=== PATIENT | male | born 1940 | race Caucasian/White ===

== ENCOUNTER → 2017-10-05 | Outpatient (CLI) | payer MEDICARE ==
[~2017-10-05] MED LIST: LISI-363 PO; LISI-515 PO; MELO15TA20 PO; SYMB160A INH; SYMB80AE INH; VENTAER INH
--- NOTE | 2017-10-05 09:05 | RADRPT ---
EXAM DATE/TIME: 10/05/2017 08:53 [facility] COMPARISON: No previous studies available for comparison. INDICATIONS : Pre op- Evaluate for pneumonia, pneumothorax, or communicable diseases. MEDICAL HISTORY : None. SURGICAL HISTORY : None. ENCOUNTER: Initial ACUITY: 1 day PAIN SCORE: 0/10 LOCATION: Bilateral chest FINDINGS: PA and lateral views of the chest demonstrate the lungs to be symmetrically aerated without evidence of mass, infiltrate or effusion. There is mild hyperinflation. The cardiomediastinal contours are u nremarkable. Degenerative changes thoracic spine. CONCLUSION: No acute disease. Dayday Rodriguez MD FACR on October 05, 2017 at 9:04 Board Certified Radiologist. This report was verified electronically.
[2017-10-05 09:20] LABS: AUTOMATED NEUTROPHIL # 4.4 TH/MM3 (1.8-7.7); BASOPHIL % 0.5 % (0.0-2.0); EOSINOPHIL # 0.3 TH/MM3 (0-0.4); EOSINOPHIL % 3.4 % (0.0-4.0); HEMATOCRIT 41.4 % (39.0-51.0); HEMOGLOBIN 13.7 GM/DL (13.0-17.0); LYMPH % 29.7 % (9.0-44.0); LYMPHOCYTE # 2.3 TH/MM3 (1.0-4.8); MEAN CELL VOLUME 86.7 FL (80.0-100.0); MEAN CORPUSCULAR HEMOGLOBIN 28.8 PG (27.0-34.0); MEAN CORPUSCULAR HGB CONC 33.2 % (32.0-36.0); MEAN PLATELET VOLUME 8.1 FL (7.0-11.0); MONO % 9.1 % (0.0-8.0); MONOCYTE # 0.7 TH/MM3 (0-0.9); NEUT % 57.3 % (16.0-70.0); PLATELET COUNT 219 TH/MM3 (150-450); RED BLOOD COUNT 4.78 MIL/MM3 (4.50-5.90); RED CELL DISTRIBUTION WIDTH 15.1 % (11.6-17.2); WHITE BLOOD COUNT 7.7 TH/MM3 (4.0-11.0)
[2017-10-05 09:23] LABS: BILIRUBIN, URINE NEG (NEG); BLOOD, URINE NEG (NEG); GLUCOSE,URINE NEG (NEG); KETONE, URINE NEG (NEG); MUCUS URINE FEW /lpf (OCC); NITRITE,URINE NEG (NEG); PH, URINE 5.5 (5.0-8.5); SQUAMOUS EPITHELIAL CELL URINE <1 /hpf (0-5); URINE COLOR YELLOW (YELLW/STRAW); URINE LEUKOCYTE ESTERASE NEG (NEG)
[2017-10-05 09:44] LABS: ALBUMIN 3.7 GM/DL (3.4-5.0); AST (GOT) 15 U/L (15-37); BICARBONATE 31.7 MEQ/L (21.0-32.0); BLOOD UREA NITROGEN 27 MG/DL (7-18); CALCIUM 9.4 MG/DL (8.5-10.1); CHLORIDE 107 MEQ/L (98-107); CREATININE 1.04 MG/DL (0.60-1.30); GLOMERULAR FILTRATION RATE 69 ML/MIN (>89); GLUCOSE,FASTING 101 MG/DL (74-99); SODIUM (NA) 143 MEQ/L (136-145)
[2017-10-05 09:46] LABS: WESTERGREN SEDIMENTATION RATE 8 mm/hr (0-20)
[2017-10-05 09:49] LABS: ALKALINE PHOSPHATASE 45 U/L (45-117); ALT (GPT) 19 U/L (12-78); C-REACTIVE PROTEIN 0.49 MG/DL (0.00-0.30); TOTAL BILIRUBIN ADULT 0.3 MG/DL (0.2-1.0); TOTAL PROTEIN 6.6 GM/DL (6.4-8.2)
--- NOTE | 2017-10-06 23:00 | EKG ---
Date Performed: 10/05/2017 Time Performed: 08:12:20 PTAGE: 77 years EKG: Sinus rhythm WITH SINUS ARRHYTHMIA ABNORMAL ECG PREVIOUS TRACING : 04/06/2013 08.47 Since the prior tracing, there has been no significant oliveros DOCTOR: Kerry Ruth Interpretating Date/Time 10/06/2017 22:59:29
== END ==
LOC: CPRE 07:50
PROVIDERS: ATTEND Orthopaedic Surgery
DX: Z01.812 Encounter for preprocedural laboratory examination (principal); Z01.811 Encounter for preprocedural respiratory examination; Z01.810 Encounter for preprocedural cardiovascular examination; R94.31 Abnormal electrocardiogram [ECG] [EKG]
CPT/HCPCS: 36415; 71046; 80053; 81001; 85025; 85652; 86140; 93005

== ENCOUNTER 2017-10-14 05:37 | Inpatient (IN) | payer MEDICARE ==
--- NOTE | 2017-10-13 16:58 | MH ---
cc: Sherman Douglass MD, Srinivasa MD DATE OF ADMISSION: 10/14/2017 DIAGNOSIS: 1. End-stage osteoarthritis right knee. 2. Moderate obesity PROPOSED SURGERY: Total knee replacement arthroplasty, right knee. PAST MEDICAL HISTORY: He has had chronic obstructive pulmonary disease and high blood pressure. PAST SURGICAL SURGERY: Hydrocele, tonsillectomy, meniscectomy, lumbar laminectomy. TUR of the prostate. He also has pain in both shoulders. HISTORY OF PRESENT ILLNESS: I have seen this patient for several years and we previously treated him with injection and visco supplementation. Surgery was postponed pending his weight loss because of his obesity. He also has some venous insufficiency and edema in the lower extremities due to obesity. He has never had any blood clots. The patient has come back wanting surgery and he had lost several pounds (23 to be exact) in the last several months. He has significantly diminished edema of the right lower extremity. He does still have skin discoloration of both lower legs. The patient is now being brought in for a total knee replacement arthroplasty. His preoperative workup was good. Medical clearance has been obtained. The procedure itself and the potential risks, hazards, complications and expected results have all been discussed with him in detail. Risks of a neurovascular compromise, stiffness, thromboembolic phenomena and infection have been discussed. Prophylactic anticoagulation either with Xarelto, Lovenox or aspirin discussed. Post hospital and postop course have been discussed. Details of informed consent documented on the office record. PHYSICAL EXAMINATION: EXTREMITIES: A white male who has a varus deformity of the right knee. There is minimal swelling. No effusion. Skin condition around the right knee is good. He has palpable dorsalis pedis pulse and good color, temperature and capillary filling of the toes. There is feeble to absent posterior tibial pulse. There is good popliteal pulse. He lacks the last couple of degrees of extension, flexes to 110 degrees. No obvious instability. HEENT: Head normocephalic. Pupils react to light. Face symmetrical. HEART: Regular rhythm, no murmurs. LUNGS: Clear to auscultation. ABDOMEN: Soft and supple. Sherman Douglass MD SS/SA/rr , 04:26 PM , 04:50 PM
[~2017-10-14] VITALS: Ht 165.1 cm; Wt 96.6 kg
[~2017-10-14 05:37] MED LIST changes: -LISI-363 PO; -SYMB80AE INH
[2017-10-14] MEDS ORDERED: SODIUM CHLORID 0.9% 500 ML IV PRN (06:00)
[2017-10-14] MEDS ORDERED: POVIDONE IODINE 5% (ANTISEPSIS KIT) 4 APPLICATIONS EACH NARE PRN (06:00)
[2017-10-14] MEDS ORDERED: LACTATED RINGER'S 1000 ML IV PRN (06:00)
[2017-10-14] MEDS ORDERED: CHLORHEXIDINE GLUCONATE 2 % 1 PACK (2 CLOTHS) TOPICAL PRN (06:00)
[2017-10-14] MEDS ORDERED: METOPROLOL TARTRATE 25 MG TAB PO PRN (06:00)
[2017-10-14] MEDS ORDERED: VANCOMYCIN 1 GM/200 ML INJ 200 ML IV ONE (06:05)
[2017-10-14] MEDS ORDERED: TOBRAMYCIN 1200 MG VIAL (for ortho/sterile core) OTHER ONE (06:07)
[2017-10-14] MEDS ORDERED: GENTAMICIN SULFATE 80 MG/2 ML VIAL ONE (06:07)
[2017-10-14] MEDS ORDERED: CHLORHEXIDINE GLUCONATE 4% SOLN 120 ML BTL TOPICAL SCH (06:15)
[2017-10-14] MEDS ORDERED: TRANEXAMIC ACID INJ 970 MG in SODIUM CHLORIDE 0.9% INJ 100 ML IV SCH ×4 (06:15)
[2017-10-14] MEDS ORDERED: VANCOMYCIN 1250 MG/NS 250 ML (for 70-84 kg) IV SCH ×2 (06:15)
[2017-10-14] MEDS ORDERED: ceFAZolin 2 GM PREMIX 50 ML IV SCH (06:15)
[2017-10-14] MEDS ORDERED: PROPOFOL 500 MG/50 ML INJ 100 ML ONE (06:52)
[2017-10-14] MEDS ORDERED: MIDAZOLAM HCL 2 MG/2 ML VIAL ONE (06:55)
[2017-10-14] MEDS ORDERED: BUPIVACAINE LIPOSOME PF 1.3% 20 ML VIAL ONE (06:55)
[2017-10-14] MEDS ORDERED: LIDOCAINE HCL 1% PF 5 ML AMPULE ONE (06:55)
[2017-10-14] MEDS ORDERED: BUPIVACAINE LIPOSO PF 1.3% INJ 20 ML in SODIUM CHLORIDE 0.9% INJ 60 ML P-ARTICULR SCH (07:15)
[2017-10-14] MEDS ORDERED: NALOXONE HCL 0.4 MG/ML AMP IV PUSH PRN (09:45)
[2017-10-14] MEDS ORDERED: traMADol HCL 50 MG TAB PO PRN (09:45)
[2017-10-14] MEDS ORDERED: TEMAZEPAM 15 MG CAP PO PRN (09:45)
[2017-10-14] MEDS ORDERED: ACETAMINOPHEN/HYDROcodone 325 MG/5 MG TAB PO PRN (09:45)
[2017-10-14] MEDS ORDERED: diphenhydrAMINE HCL 50 MG/ML VIAL IV PUSH PRN (09:45)
[2017-10-14] MEDS ORDERED: TRANEXAMIC ACID INJ 0 MG in SODIUM CHLORIDE 0.9% INJ 100 ML IV SCH (09:45)
[2017-10-14] MEDS ORDERED: MORPHINE SULFATE 30 MG/30 ML PCA IV SCH (09:45)
[2017-10-14] MEDS ORDERED: Post-op Orders (for Pharmacy) XX ONE (09:45)
[2017-10-14] MEDS ORDERED: HYDR-3516 PO (09:52)
[2017-10-14] MEDS ORDERED: TRAM50 PO (09:52)
[2017-10-14] MEDS ORDERED: ASPI325T33 PO (09:52)
--- NOTE | 2017-10-14 09:54 | HHI.FF ---
Face to Face Verification Diagnosis: (1) Total knee replacement status Physical Therapy Gait training Knee: Total knee, Protocol: Right Right LE Weight Bearing: WB as tolerated Right LE Range of Motion: Active Assistive ROM Nursing Nursing: Dressing changes (remove post op dressing on october 21, and replace with primapore) Dressing Changes: Coverderm/Primapore I have seen patient Doug Truong on 10/14/17. My clinical findings support the need for the requested home health care services because: Limited ability to care for self I certify that my clinical findings support that this patient is homebound because: Unsafe to leave home unassisted Unable to use public transportation Sherman Douglass MD Oct 14, 2017 09:54
[2017-10-14] MEDS ORDERED: WALKER WHEELS/F1 MIS (09:56)
[2017-10-14] MEDS ORDERED: ADJUSTABLE COMM1 MIS (09:56)
[2017-10-14] MEDS ORDERED: ALBUTEROL SULFATE 90 MCG/ACT HFA 8 GM INHALER INH PRN (10:00)
[2017-10-14] MEDS ORDERED: DO NOT ADM ANY ANTICOAGULANT DRUGS PRN (10:00)
[2017-10-14] MEDS: SODIUM CHLOR 0.9% 1000 ML INJ 1,000 ML IV SCH ×2 (10:15→21:06)
--- NOTE | 2017-10-14 10:27 | MP ---
cc: Sherman Douglass MD DATE OF OPERATION: 10/14/2017 PREOPERATIVE DIAGNOSIS: End-stage osteoarthritis right knee. POSTOPERATIVE DIAGNOSIS: End-stage osteoarthritis right knee. OPERATIVE PROCEDURE: Total knee replacement arthroplasty right knee using cemented Biomet components of the Vanguard type. IMPLANTS USED: Femur 67.5-mm right, tibia 71-mm tray with I-beam, polyethylene insert 14-mm standard, patella medium cemented. SURGEON: Dr. Douglass ANESTHESIA: Spinal and adductor block. PROCEDURE: After induction of anesthesia, the patient was placed appropriately on the operative table. Del Angel catheter was introduced because of a history of transurethral resection of the prostate. A tourniquet was not used because of calcified blood vessels in his right lower extremity. The right lower extremity was thoroughly prepped with alcohol and ChloraPrep and draped in the routine fashion. A slightly medial to midline vertical incision was made, deepened through the subcutaneous tissue, hemostasis obtained by cautery. Medial parapatellar incision was carried out, the medial structures elevated off the tibia to the mid-medial corner and slightly posterior to it. All osteophytes were excised. The patellar osteophytes were removed. The knee was flexed, the femoral canal opened anterior to the posterior cruciate ligament and the distal femoral cutting guide set at 6 degrees was used, distal femoral cut was made. Bone removal was adequate. Proximal tibial cut was made using the external guide referencing 4 mm from the lower-most portion of the tibial plateau. AP and chamfer cuts were made using the appropriate guide and satisfactory external rotation for a 67.5 mm femoral implant. The knee joint was debrided, posterior osteophytes were excised. Additional release was carried out posterior medially close to bone. Tibial cut was checked and there was need to remove 2-3 more mm of bone laterally to put the tibial implant in neutral. Bony surface were prepared to receive the trial implants. Trial implants were placed and with the 10-mm insert everything looked good except for a little bit of hyperextension. The patella was prepared following routine technique for a medium-sized patella. Patellar implants tracked well with the trial implants. Trial implants were all removed, femoral canal plugged with bone. Dilute Exparel solution was injected all around the knee particularly medially. Bony surfaces thoroughly lavaged and dried and using 2 units of cement with 1200 mg of tobramycin in it, the tibia was placed first, all excess cement removed. The tibia was placed in satisfactory rotation. The femoral implant was impacted in place and all excess cement removed. The knee was extended with a 10-mm insert. It gave hyperextension, therefore was exchanged for a 12-mm insert. The patellar implant was cemented, all excess cement removed. Once the cement solidified, the knee was checked and we tried a 14-mm insert and that appears to be the best. The joint was thoroughly lavaged and suctioned out, all debris removed and a 14-mm insert placed and clipped. Final position, alignment, stability were all good. An 18 Hemo-Vac drain was put in superolaterally, drain to be clamped. Closure was carried out with #2 Vicryl including two holes in the medial border of the patella to enhance the repair. The rest was closed with #2 Quill. The subcutaneous tissue was closed with 2-0 Vicryl, the skin closed with 3-0 Quill and Steri-Strips. A silver impregnated long-term dressing was applied. Separate dressing applied over the drain, ice bladder applied and circularized with tri-fold and Harish. The patient was transferred to the recovery room in satisfactory condition. The patient tolerated the procedure well. Transfusions and complications were none. Postoperative condition was satisfactory. Prognosis is good. Estimated blood loss was 150 mL. MD LINDA Mahajan/SALLIE , 10:02 AM , 10:25 AM
[2017-10-14] MEDS: KETOROLAC TROMETHAMINE 30 MG/ML (IVP) VIAL IVP SCH ×2 (10:30→17:30)
--- NOTE | 2017-10-14 10:33 | RADRPT ---
EXAM DATE/TIME: 10/14/2017 10:16 [facility] COMPARISON: No previous studies available for comparison. INDICATIONS : Post op right total knee. MEDICAL HISTORY : None. SURGICAL HISTORY : None. ENCOUNTER: Initial ACUITY: 1 day PAIN SCORE: Non-responsive. LOCATION: Right knee. FINDINGS: AP and lateral views of the knee following arthroplasty reveals a prosthesis in anatomic alignment. F racture is not appreciated. Surgical drain is evident CONCLUSION: Status post total knee arthroplasty. Dayday Rodriguez MD FACR on October 14, 2017 at 10:31 Board Certified Radiologist. This report was verified electronically.
[2017-10-14] MEDS ORDERED: PHENYLEPH/NS 1000 MCG/10 ML SYR IV ONE (12:00)
[2017-10-14] MEDS ORDERED: LACTATED RINGER'S 1000 ML INJ 2,000 ML IV ONE (12:00)
[2017-10-14] MEDS ORDERED: PROPOFOL 200 MG/20 ML AMP IV ONE (12:00)
[2017-10-14] MEDS: PCA - TOTAL MG MORPHINE DELIVERED PER SHIFT SCH ×2 (14:00→21:06)
--- NOTE | 2017-10-14 14:08 | PD.CONS ---
HPI Service [facility] Hospitalists Consult Requested By Dr. Sherman Douglass Reason for Consult Medical management Primary Care Physician Joe Ramirez MD Diagnoses: History of Present Illness Mr. Truong is a pleasant 77 y/o WM with COPD, HTN, Osteoarthritis, and MEREDITH but not using his CPAP. Pt was admitted to [facility] on 10/14/17 for elective right total knee replacement with Dr. Douglass. The [facility] Hospitalist team was consulted to help with managing the patient chronic medical issues. He is seen post- operatively in the PACU and offers no complaints. Pts vital signs are stable. He has Del Angel catheter in place. Pt denies any SOB, chest pain, nausea/vomiting, palpitations, dizziness or abdominal pain. Review of Systems Constitutional: DENIES: Fever, Chills Respiratory: DENIES: Cough, Shortness of breath Cardiovascular: DENIES: Chest pain Gastrointestinal: DENIES: Abdominal pain, Nausea, Vomiting Genitourinary: DENIES: Hematuria Musculoskeletal: COMPLAINS OF: Joint pain Integumentary: DENIES: Rash Neurologic: DENIES: Headache Psychiatric: DENIES: Confusion Past Family Social History Past Medical History COPD MEREDITH, not using CPAP HTN Osteoarthritis Vitamin D Deficiency Past Surgical History Lumbar laminectomy TURP Hydrocele repair, bilateral Vasectomy Tonsillectomy Cataract surgery Reported Medications Ventolin Hfa 18 GM Inh (Albuterol Sulfate) 90 Mcg/Act Aer 2 Puff INH Q4-6H PRN Meloxicam 15 Mg Tab 15 Mg PO DAILY Lisinopril 20 Mg Tab 20 Mg PO HS Symbicort Inh (Budesonide/Formoterol Fumarate) 160-4.5 Mcg/Act Aero 1 Puff INH Q12HR Allergies: Coded Allergies: No Known Allergies (Unverified Allergy, Unknown, 10/14/17) Family History Noncontributory Social History Hx of tobacco use, he smoked 1-3ppd x 38 years, quit in 1993 Rare alcohol use Denies any illicit drug use 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 HEENT: Atraumatic. Normocephalic. No temporal or scalp tenderness. No scleral icterus. Airway patent. NECK: Trachea midline, supple, nontender. CARDIO: Regular. RESP: CTA bilaterally. No wheezes, rales, or rhonchi. ABD: +BS, soft, non-tender, nondistended. EXT: RLE bandages are c/d/i NEURO: Awake and alert. Motor and sensory grossly within normal limits. Normal speech. Imaging Last Impressions Knee X-Ray 10/14/17 0938 Signed Impressions: Service Date/Time: Saturday, October 14, 2017 10:16 - CONCLUSION: Status post total knee arthroplasty. Dayday Rodriguez MD FACR Assessment and Plan Problem List: (1) Total knee replacement status ICD Codes: Z96.659 - Presence of unspecified artificial knee joint Status: Acute Plan: - Pt is a 77 y/o with HTN, COPD, osteoarthritis and MEREDITH who was admitted on for right total knee arthroplasty - Post-op pain control per Ortho - DVT prophylaxis is deferred to surgeon - PT daily - IS - Constipation precautions (2) HTN (hypertension) ICD Codes: I10 - Essential (primary) hypertension Status: Chronic Plan: - Home meds continued - Monitor (3) COPD (chronic obstructive pulmonary disease) ICD Codes: J44.9 - Chronic obstructive pulmonary disease, unspecified Status: Chronic Plan: - Home meds continued (4) MEREDITH (obstructive sleep apnea) ICD Codes: G47.33 - Obstructive sleep apnea (adult) (pediatric) Status: Chronic Plan: - Pt does not use his CPAP Assessment and Plan Patient examined. Assessment and plan formulated with Nandini Raygoza PA-C. I agree with the above. right tka. seen in Pacu. medically stable. Problem Qualifiers (1) Total knee replacement status: Qualified Codes: Z96.651 - Presence of right artificial knee joint Nandini Raygoza Oct 14, 2017 14:08 Easton Yousif MD Oct 14, 2017 14:29
[2017-10-14 15:32] VITALS: BP 147/69; PULSE 95; RESP 18; TEMP 95.5; O2SAT 98
[2017-10-14] MEDS ORDERED: CEFAZOLIN INJ 2,000 MG in SODIUM CHLORIDE 0.9% INJ 100 ML IV SCH (16:00)
[2017-10-14] MEDS: ONDANSETRON HCL 4 MG/2 ML VIAL IVP PRN (17:30)
[2017-10-14 20:00] VITALS: BP 99/56; PULSE 108; RESP 15; TEMP 98.4; O2SAT 96
[2017-10-14] MEDS ORDERED: VANCOMYCIN INJ 1 GM in SODIUM CHLOR 0.9% 250 ML INJ 250 ML IV SCH (20:00)
[2017-10-14] MEDS: LISINOPRIL 20 MG TAB PO SCH (21:00)
[2017-10-14] MEDS: BUDESONIDE-FORMOTEROL 160/4.5 MCG INHALER INH SCH (21:02)
[2017-10-14] MEDS: ASPIRIN EC 325 MG TABEC PO SCH (21:05)
[2017-10-14] MEDS: ACETAMINOPHEN 1000 MG/100 ML VIAL IV SCH (22:26)
[2017-10-15] VITALS: BP 124/54; PULSE 110; RESP 15; TEMP 98.4; O2SAT 92
[2017-10-15] MEDS: KETOROLAC TROMETHAMINE 30 MG/ML (IVP) VIAL IVP SCH ×3 (01:59→17:40)
[2017-10-15 04:00] VITALS: BP 113/51; PULSE 112; RESP 15; TEMP 98.7; O2SAT 92
[2017-10-15] MEDS: SODIUM CHLOR 0.9% 1000 ML INJ 1,000 ML IV SCH ×2 (05:25→14:39)
[2017-10-15] MEDS: PCA - TOTAL MG MORPHINE DELIVERED PER SHIFT SCH (05:27)
[2017-10-15 06:56] LABS: HEMATOCRIT 34.6 % (39.0-51.0); HEMOGLOBIN 11.5 GM/DL (13.0-17.0)
[2017-10-15 07:22] LABS: CREATININE 1.03 MG/DL (0.60-1.30)
[2017-10-15 08:00] VITALS: BP 115/60; PULSE 104; RESP 18; TEMP 99.5; O2SAT 91
[2017-10-15] MEDS: BUDESONIDE-FORMOTEROL 160/4.5 MCG INHALER INH SCH ×2 (08:41→21:04)
[2017-10-15] MEDS: ASPIRIN EC 325 MG TABEC PO SCH (08:41)
[2017-10-15] MEDS: ACETAMINOPHEN 1000 MG/100 ML VIAL IV SCH ×2 (08:41→21:03)
[2017-10-15] MEDS ORDERED: ACETAMINOPHEN/HYDROcodone 325 MG/5 MG TAB PO PRN (10:30)
--- NOTE | 2017-10-15 10:37 | PD.ORT.PN ---
Subjective Post Op Day #: 1 Pain Scale: 7-8 Subjective Remarks hurts too much Range of Motion able to flex 80 degrees but extend to only 70 degrees actively Distance Walked unknown Objective Vitals Last 72 hours Impressions Knee X-Ray 10/14/17 0938 Signed Impressions: Service Date/Time: Saturday, October 14, 2017 10:16 - CONCLUSION: Status post total knee arthroplasty. Dayday Rodriguez MD FACR Vital Signs Date Time Temp Pulse Resp B/P (MAP) Pulse Ox O2 Delivery O2 Flow Rate FiO2 10/15/17 08:00 99.5 104 18 115/60 (78) 91 10/15/17 05:27 17 10/15/17 04:00 98.7 112 15 113/51 (71) 92 10/15/17 00:00 98.4 110 15 124/54 (77) 92 10/14/17 21:06 16 10/14/17 20:00 98.4 108 15 99/56 (70) 96 10/14/17 15:32 95.5 95 18 147/69 (95) 98 10/14/17 14:00 97.9 99 16 140/77 (98) 96 Room Air 10/14/17 13:00 87 16 143/70 (94) 96 Room Air 10/14/17 12:00 83 16 152/67 (95) 100 Nasal Cannula 2 10/14/17 11:00 97.5 70 16 150/72 (98) 99 Nasal Cannula 2 10/14/17 10:53 16 10/14/17 10:45 75 16 155/66 (95) 99 Nasal Cannula 2 I/O 10/14/17 10/14/17 10/14/17 10/15/17 10/15/17 10/15/17 07:00 15:00 23:00 07:00 15:00 23:00 Intake Total 2450 ml 1950 ml 613 ml 250 ml Output Total 3385 ml 1000 ml 780 ml Balance -935 ml 950 ml -167 ml 250 ml Intake Oral 250 ml 700 ml IV Total 2200 ml 1250 ml 613 ml 250 ml Output Urine Total 330 ml 900 ml 700 ml Drainage Total 30 ml 100 ml 80 ml Estimated Blood Loss 25 ml Other 3000 ml Result Diagram: 10/15/1760410/15/17604 Objective Remarks A., A, and O Struggling to pee at bedside sitting up with knee flexed 80 degrees. Moves toes well, not able to activate much extension in this position drain is out, dressing mildly soiled, but not leaking Assessment & Plan Ortho Post Op Day #: 1 Problem List: Assessment and Plan Painful, so cahnge to oxycontin, and use tramadol in between or Hydrocodone for brekthrough pain May end up needing SNF. He wants to go home, daughter wants him to go to SNF, but decision will be clinical. To decide tomorrow. Flomax added Sherman Douglass MD Oct 15, 2017 10:37
[2017-10-15] MEDS: TAMSULOSIN HCL 0.4 MG CAP PO SCH ×2 (10:47→21:00)
[2017-10-15] MEDS: oxyCODONE HCL 20 MG CONTROLLED RELEASE TAB PO SCH ×2 (10:47→22:38)
[2017-10-15 11:54] VITALS: BP 123/59; PULSE 92; RESP 18; TEMP 97.2; O2SAT 91
[2017-10-15] MEDS: ONDANSETRON HCL 4 MG/2 ML VIAL IVP PRN (14:02)
[2017-10-15 16:00] VITALS: BP 118/58; PULSE 87; RESP 18; TEMP 97; O2SAT 93
[2017-10-15 20:00] VITALS: BP 103/61; PULSE 92; RESP 16; TEMP 96.1; O2SAT 91
[2017-10-15] MEDS: LISINOPRIL 20 MG TAB PO SCH (21:00)
[2017-10-15] MEDS: DOCUSATE SODIUM 100 MG CAP PO SCH (21:04)
[2017-10-16] VITALS: BP 121/54; PULSE 99; RESP 16; TEMP 97; O2SAT 97
[2017-10-16] MEDS: SODIUM CHLOR 0.9% 1000 ML INJ 1,000 ML IV SCH ×2 (02:00→12:00)
[2017-10-16] MEDS: KETOROLAC TROMETHAMINE 30 MG/ML (IVP) VIAL IVP SCH (02:09)
[2017-10-16 04:00] VITALS: BP 105/54; PULSE 96; RESP 16; TEMP 97.1; O2SAT 93
[2017-10-16 08:00] VITALS: BP 142/63; PULSE 103; RESP 18; TEMP 97.5; O2SAT 92
[2017-10-16] MEDS: TAMSULOSIN HCL 0.4 MG CAP PO SCH (09:00)
[2017-10-16] MEDS: DOCUSATE SODIUM 100 MG CAP PO SCH (09:26)
[2017-10-16] MEDS: ASPIRIN EC 325 MG TABEC PO SCH (09:26)
[2017-10-16] MEDS: ACETAMINOPHEN 1000 MG/100 ML VIAL IV SCH (09:27)
[2017-10-16] MEDS: BUDESONIDE-FORMOTEROL 160/4.5 MCG INHALER INH SCH (09:27)
[2017-10-16] MEDS: oxyCODONE HCL 20 MG CONTROLLED RELEASE TAB PO SCH (11:00)
[2017-10-16 12:00] VITALS: BP 138/63; PULSE 99; RESP 18; TEMP 97.6; O2SAT 93
[2017-10-16 16:00] VITALS: BP 160/66; PULSE 99; RESP 18; TEMP 95.8; O2SAT 97
--- NOTE | 2017-10-17 01:37 | MD ---
cc: Sherman Douglass MD DATE OF DISCHARGE: 10/16/2017 ADMITTING DIAGNOSIS: Osteoarthritis right knee. DISCHARGE DIAGNOSIS: Osteoarthritis right knee. ADDITIONAL DIAGNOSES: 1. Urinary retention. 2. Obesity. 3. Chronic obstructive pulmonary disease. HISTORY: Considered longstanding problem with the right knee treated nonoperatively with NSAID injections, etc. He is now brought in for total knee replacement. Arthroplasty was performed on the day of admission. Postoperative course essentially uneventful except for urinary retention which was relieved by Flomax. He has had some more pain than usual and we have him on OxyContin here in the hospital. He feels tired and not quite ready to go home and also family is insisting he go to detention facility and considering his age and COPD etc. I have authorized transfer to detention facility whenever the bed is available, either this evening or tomorrow. The patient has no particular increased risk for ____ DVT and therefore will maintain him on aspirin 325 mg once a day. The patient is ambulating now. He is able to fully extend the knee. He can flex the knee to almost 90 degrees. He goes to the bathroom by himself. DISCHARGE MEDICATIONS: Hydrocodone 5/325 two q.i.d. p.r.n. for severe pain, tramadol 100 mg q. 8 h p.r.n. for mild pain. Followup appointment 12 days postop. They are to call the office to make an appointment. Postoperative labs are satisfactory. The patient is stable at the time of discharge. Sherman Douglass MD SS/rt , 04:20 PM , 01:35 AM
== END 2017-10-16 18:21 | DRG 470 ==
LOC: HSDI 05:37 → N06A 14:54
PROVIDERS: ADMIT Orthopaedic Surgery; ATTEND Orthopaedic Surgery
PROC: 3E0T3BZ Introduction of Anesthetic Agent into Peripheral Nerves and Plexi, Percutaneous Approach (ICD-10-PCS; 2017-10-14)
PROC: 0SRC0J9 Replacement of Right Knee Joint with Synthetic Substitute, Cemented, Open Approach (ICD-10-PCS; principal; 2017-10-14 07:09)
DX: M17.11 Unilateral primary osteoarthritis, right knee (principal); J44.9 Chronic obstructive pulmonary disease, unspecified; E66.9 Obesity, unspecified; I10 Essential (primary) hypertension; I87.2 Venous insufficiency (chronic) (peripheral); M21.161 Varus deformity, not elsewhere classified, right knee; R33.9 Retention of urine, unspecified; G47.33 Obstructive sleep apnea (adult) (pediatric); Z87.891 Personal history of nicotine dependence; Z68.35 Body mass index [BMI] 35.0-35.9, adult
CPT/HCPCS: 73560; 80048; 85014; 85018; 94150; C1776; C9290; J0131; J0690; J1580; J1885; J2250; J2270; J2370; J2405; J3370; J7030; J7050; J7120

== ENCOUNTER 2018-06-02 19:21 | Inpatient (IN) ==
[2018-06-02] MEDS ORDERED: Sod Chloride 0.9% Inj 1,000 ML IV.SIG ONE (19:59)
[2018-06-02] MEDS ORDERED: Morphine Inj 4 MG/ML Vial IV.PUSH ONE (19:59)
--- NOTE | 2018-06-02 20:08 | ED ---
HPI General Chief Complaint: Abdominal Pain Stated Complaint: Abdominal pain Time Seen by Provider: 06/02/18 19:48 Source: patient and family Mode of arrival: ambulatory Limitations: no limitations History of Present Illness HPI narrative: 77-year-old male presents to the emergency department by private transportation the care of family for evaluation of lower abdominal pain with nausea dry heaves one episode of diarrhea and subjective fever without chills. 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 Patient is to start oral chemotherapy as soon as he seen by his oncologist at next visit and has the medication but has not yet initiated the medication. Patient also has history of recent diagnosis of DVT of the right lower extremity as of March 2018 has been on Eliquis but this was discontinued yesterday in preparation for [id number]-i-[id number] placement on Thursday. Patient has had no vomiting no hematemesis no coffee-ground emesis patient's had no melena or hematochezia. Patient did eat sausage and cabbage yesterday and is concerned that there may be a correlation however grandson and ate the same food without any symptoms. Patient is also noticed some decreased urine output and urinary frequency/urgency. Patient denies dysuria flank pain or hematuria. Patient rates his current discomfort 5/10 in intensity. Patient reports poor oral intake today and reports that he feels dehydrated. No cough no congestion no sore throat no earache no chest pain no pleuritic chest pain. reports that patient appeared short of breath at home prior to arrival to the emergency department. MD complaint: Reports abdominal pain Onset (ago): day(s) (1) Pain Consistency: intermittent Location: Reports LLQ and suprapubic Severity: moderate Severity scale (1-10): 4 Quality: Reports aching, fullness and dull Radiation: Reports none Migration to: Reports no migration Relieving factors: nothing Exacerbating factors: eating Context: Reports possible food poisoning; Denies foreign travel, sick contacts, recent antibiotic use, recent surgery/procedure, recent injury and history of similar episodes Associated symptoms: Reports nausea, diarrhea and fever (Subjective); Denies vomiting, chills, constipation, dysuria (Urinary urgency and frequency), hematemesis, hematochezia, melena, hematuria, anorexia and syncope Treatments prior to arrival: Denies NSAIDs Related Data Home Medications Medication Instructions Recorded Confirmed budesonide-formoterol [Symbicort] 2 puff INHALATION BID 04/22/18 04/22/18 lisinopril 20 mg PO DAILY 04/22/18 04/22/18 Allergies Allergy/AdvReac Type Severity Reaction Status Date / Time No Known Allergies Allergy Verified 04/22/18 09:14 Review of Systems ROS: all other systems reviewed are negative PMFSH History History Provided By: Patient (Hypertension COPD diverticulosis DVT esophageal cancer with metastatic disease knee replacement remote tobaccoism) and Family Member Medical History Medical History COPD (chronic obstructive pulmonary disease) (Acute) FHx: total knee replacement (Acute) Social History Social History Substance History: No History of Abuse Smoking Status: Former smoker How Often Do You Have a Drink Containing Alcohol: Never Recent Travel in [facility] within the Last 8 Weeks: No Recent Out of Country Travel within the Last 8 Weeks: No Exam Narrative Exam Narrative: GENERAL: Well-nourished, well-developed patient. SKIN: Focused skin assessment warm/dry. HEAD: Normocephalic. EYES: No scleral icterus. No injection or drainage. NECK: Supple, trachea midline. No JVD or lymphadenopathy. CARDIOVASCULAR: Increased regular rate and rhythm without murmurs, gallops, or rubs. RESPIRATORY: Breath sounds equal bilaterally. No accessory muscle use. Lung sounds clear to auscultation bilaterally GASTROINTESTINAL: Abdomen soft, mild suprapubic and left lower quadrant tenderness without guarding or rebound and no palpable pulsatile mass, nondistended. MUSCULOSKELETAL: No cyanosis, RLE edema. BACK: Nontender without obvious deformity. No CVA tenderness. Course Initial Documented Vital Signs Temperature 100.3 F H 06/02/18 19:33 Pulse Rate 127 H 06/02/18 19:33 Respiratory Rate 22 06/02/18 19:33 Blood Pressure 154/67 H 06/02/18 19:33 Pulse Oximetry 95 06/02/18 19:33 Last Documented Vital Signs Temperature 98.8 F 06/02/18 20:20 Pulse Rate 95 H 06/02/18 20:20 Respiratory Rate 18 06/02/18 20:20 Blood Pressure 157/70 H 06/02/18 20:20 Pulse Oximetry 96 06/02/18 20:28 Medical Decision Making [facility] Narrative Medical decision making narrative: 77-year-old male presents with subjective fever urinary frequency and urgency with left lower quadrant pain; triage was noted to have temperature elevation 100.3 F with tachycardia heart rate 127 patient is normotensive room air O2 saturations 95% in no respiratory distress; patient placed on rn cardiac rehab IV access obtained lactic acid blood cultures collected patient administered a liter of normal saline as he is afebrile no antipyretics administered. Will give first dose of antibiotic Patient with leukocytosis with left shift presenting vital signs heart rate of 132 with temperature 100.3 and normotensive with O2 saturation 94% chest x-ray no lobar infiltrate markedly abnormal urinalysis with innumerable white blood cells few bacteria cultures indicated patient meets sepsis criteria based on heart rate white cell count and source of infection; CAT scan is remarkable for significant evidence of abnormal mediastinum lymph nodes lung bases and liver for metastatic disease from history of esophageal malignancy also identified to have severe diverticulosis without diverticulitis and identified to have a 4 cm infrarenal abdominal aortic aneurysm. Patient's case discussed with on-call [facility] physician Dr. French who will admit patient to his service. Medical Screen Exam Complete: Yes Emergency Medical Condition: Yes Differential Diagnosis Differential Diagnosis: Febrile illness, sepsis, UTI, diverticulitis, gastroenteritis, colitis, pneumonia Medical Records Medical records reviewed: Yes I reviewed the patient's medical records. Lab Data Lab results reviewed: Yes I reviewed the patient's lab results. Result diagrams: 06/02/18 20:10 06/02/18 20:10 Lab Results 06/02/18 06/02/18 06/02/18 Range/Units 20:00 20:10 20:10 WBC 13.8 H (4.0-11.0) th/mm3 RBC 3.94 L (4.50-5.90) mil/mm3 Hgb 11.1 L (13.0-17.0) gm/dL Hct 33.4 L (39.0-51.0) % MCV 84.8 (80.0-100.0) fL MCH 28.1 (27.0-34.0) pg MCHC 33.1 (32.0-36.0) % RDW 14.7 (11.6-17.2) % Plt Count 194 (150-450) th/mm3 MPV 7.7 (7.0-11.0) fL Neut % (Auto) 84.3 H (16.0-70.0) % Lymph % (Auto) 7.4 L (9.0-44.0) % Cannon % (Auto) 7.8 (0.0-8.0) % Eos % (Auto) 0.3 (0.0-4.0) % Baso % (Auto) 0.2 (0.0-2.0) % Neut # (Auto) 11.6 H (1.8-7.7) th/mm3 Lymph # (Auto) 1.0 (1.0-4.8) th/mm3 Cannon # (Auto) 1.1 H (0.0-0.9) th/mm3 Eos # (Auto) 0.0 (0.0-0.4) th/mm3 Baso # (Auto) 0.0 (0.0-0.2) th/mm3 WBC Differential . Differential Comment Auto diff final PT 11.6 (9.8-11.6) sec INR 1.1 Ratio APTT 26.6 (24.3-30.1) sec Sodium (136-145) meq/L Potassium (3.5-5.1) meq/L Chloride (98-107) meq/L Carbon Dioxide (21.0-32.0) meq/L Anion Gap (5-15) meq/L BUN (7-18) mg/dL Creatinine (0.60-1.30) mg/dL Estimated GFR (>89) mL/min Random Glucose (74-106) mg/dL Lactic Acid 1.7 (0.4-2.0) mmol/L Calcium (8.5-10.1) mg/dL Magnesium (1.5-2.5) mg/dL Total Bilirubin (0.2-1.0) mg/dL AST (15-37) U/L ALT (12-78) U/L Alkaline Phosphatase (45-117) U/L Total Protein (6.4-8.2) g/dL Albumin (3.4-5.0) g/dL Lipase (73-393) U/L Urine Color (Yellw/Straw) Urine Clarity (Clear) Urine pH (5.0-8.5) Ur Specific [place] (1.002-1.035) Urine Protein (Neg-Trace) mg/dL Urine Glucose (UA) (Negative) mg/dL Urine Ketones (Negative) mg/dL Urine Occult Blood (Negative) Urine Nitrate (Negative) Urine Bilirubin (Negative) Urine Urobilinogen (Less than 2) mg/dL Ur Leukocyte Esterase (Negative) Urine RBC (0-3) /hpf Urine WBC (0-5) /hpf Urine Bacteria (None) /hpf Hyaline Casts (0-3) /lpf Urine Mucus (Occasional) /lpf Micro UA Comment Ur Microscopic Review Urine Culture Comments 06/02/18 06/02/18 Range/Units 20:10 20:10 WBC (4.0-11.0) th/mm3 RBC (4.50-5.90) mil/mm3 Hgb (13.0-17.0) gm/dL Hct (39.0-51.0) % MCV (80.0-100.0) fL MCH (27.0-34.0) pg MCHC (32.0-36.0) % RDW (11.6-17.2) % Plt Count (150-450) th/mm3 MPV (7.0-11.0) fL Neut % (Auto) (16.0-70.0) % Lymph % (Auto) (9.0-44.0) % Cannon % (Auto) (0.0-8.0) % Eos % (Auto) (0.0-4.0) % Baso % (Auto) (0.0-2.0) % Neut # (Auto) (1.8-7.7) th/mm3 Lymph # (Auto) (1.0-4.8) th/mm3 Cannon # (Auto) (0.0-0.9) th/mm3 Eos # (Auto) (0.0-0.4) th/mm3 Baso # (Auto) (0.0-0.2) th/mm3 WBC Differential Differential Comment PT (9.8-11.6) sec INR Ratio APTT (24.3-30.1) sec Sodium 137 (136-145) meq/L Potassium 4.1 (3.5-5.1) meq/L Chloride 102 (98-107) meq/L Carbon Dioxide 27.1 (21.0-32.0) meq/L Anion Gap 8 (5-15) meq/L BUN 16 (7-18) mg/dL Creatinine 1.23 (0.60-1.30) mg/dL Estimated GFR 57 L (>89) mL/min Random Glucose 131 H (74-106) mg/dL Lactic Acid (0.4-2.0) mmol/L Calcium 8.5 (8.5-10.1) mg/dL Magnesium 1.8 (1.5-2.5) mg/dL Total Bilirubin 0.8 (0.2-1.0) mg/dL AST 51 H (15-37) U/L ALT 24 (12-78) U/L Alkaline Phosphatase 77 (45-117) U/L Total Protein 6.7 (6.4-8.2) g/dL Albumin 3.2 L (3.4-5.0) g/dL Lipase 345 (73-393) U/L Urine Color Yellow (Yellw/Straw) Urine Clarity Hazy H (Clear) Urine pH 5.0 (5.0-8.5) Ur Specific [place] 1.024 (1.002-1.035) Urine Protein 100 H (Neg-Trace) mg/dL Urine Glucose (UA) Negative (Negative) mg/dL Urine Ketones 20 (Negative) mg/dL Urine Occult Blood Moderate H (Negative) Urine Nitrate Negative (Negative) Urine Bilirubin Negative (Negative) Urine Urobilinogen Less than 2 (Less than 2) mg/dL Ur Leukocyte Esterase Moderate H (Negative) Urine RBC 7 H (0-3) /hpf Urine WBC (0-5) /hpf Urine Bacteria Few H (None) /hpf Hyaline Casts 1 (0-3) /lpf Urine Mucus Few H (Occasional) /lpf Micro UA Comment Culture indicated Ur Microscopic Review Not Reportable Urine Culture Comments Culture indicated Imaging Data Radiologist's impression: Abdomen/Pelvis CT 06/02/18 19:59 CONCLUSION: 1. Slight worsening of metastatic disease to the lung bases and liver compared with April 05. Mural thickening of the distal esophagus persists, characteristic of reported esophageal neoplasm. 2. 4 cm infrarenal abdominal aortic aneurysm. 3. Mildly enlarged heterogeneous prostate. Bladder unremarkable on CT. 4. Severe colonic diverticulosis. 5. 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 Chest X-Ray 06/02/18 19:59 CONCLUSION: No acute findings. ECG Data EKG Prior to Arrival: No Prior ECG tracings: not available for review Interpretation: EKG: sinus tachycardia heart rate 100 bpm age-indeterminate septal infarct with QS in V1 V2 no acute ST elevation or injury pattern change or ectopy noted. Discharge Plan Discharge Disposition Patient Disposition: 30 Still Patient Discharge Condition Condition: Stable Discharge Details Diagnosis: Sepsis, UTI (urinary tract infection) with pyuria, Esophageal cancer, DVT ( deep venous thrombosis), AAA (abdominal aortic aneurysm) Physicians Team ED Provider: Jenny Garcia Primary Care Provider: Joe Ramirez Rxs /Orders / Referrals /Forms Prescriptions: No Action lisinopril 20 mg Tablet 20 mg PO DAILY RF: 0 budesonide-formoterol [Symbicort] 160-4.5 mcg/actuation Hfa Aerosol Inhaler 2 puff INHALATION BID RF: 0 Discharge Interventions Interventions: Vital Signs Last Done: 06/02/18 20:20 Status ED Status: In Room
--- NOTE | 2018-06-02 20:22 | XR ---
EXAM DATE: 06/02/2018 7:59 PM EDT AGE/SEX: 77 years / Male INDICATIONS: Chest discomfort, abdominal pain for 2 days CLINICAL DATA: This is the patient's initial encounter. Patient reports that signs and symptoms have been present for 2 days and indicates a pain score of 0/10. MEDICAL/SURGICAL HISTORY: Chronic obstructive pulmonary disease. Esophageal cancer None. COMPARISON: [facility] [place] & LAT, 10/05/2017. . FINDINGS: A single AP view of the chest demonstrates the lungs to be symmetrically aerated without evidence of mass, infiltrate or effusion. The cardiomediastinal contours are unremarkable. Osseous structures a re intact. CONCLUSION: No acute findings. Electronically signed by: Chuy Thompson MD 06/02/2018 8:21 PM EDT
[2018-06-02 20:32] LABS: Baso % (Auto) 0.2 % (0.0-2.0); Eos % (Auto) 0.3 % (0.0-4.0); Hematocrit 33.4 % (39.0-51.0); Hemoglobin 11.1 gm/dL (13.0-17.0); Lymph % (Auto) 7.4 % (9.0-44.0); Mean Corpuscular HGB Conc 33.1 % (32.0-36.0); Mean Corpuscular Hemoglobin 28.1 pg (27.0-34.0); Mean Corpuscular Volume 84.8 fL (80.0-100.0); Mean Platelet Volume 7.7 fL (7.0-11.0); Mono # (Auto) 1.1 th/mm3 (0.0-0.9); Mono % (Auto) 7.8 % (0.0-8.0); Neut # (Auto) 11.6 th/mm3 (1.8-7.7); Neut % (Auto) 84.3 % (16.0-70.0); Platelet Count 194 th/mm3 (150-450); Red Blood Count 3.94 mil/mm3 (4.50-5.90); Red Cell Distribution Width 14.7 % (11.6-17.2); White Blood Count 13.8 th/mm3 (4.0-11.0)
[2018-06-02 20:41] LABS: Bacteria,Urine Few /hpf; Bilirubin,Urine Negative (Negative); Clarity,Urine Hazy (Clear); Color,Urine Yellow (Yellw/Straw); Glucose,Urine (UA) Negative (Negative); Hyaline Casts,Urine 1 /lpf (0-3); Leukocyte Esterase,Urine Moderate (Negative); Mucus,Urine Few /lpf (Occasional); Nitrite,Urine Negative (Negative); Specific Gravity,Urine 1.024 (1.002-1.035)
[2018-06-02 20:43] LABS: Activated Partial Thrombo Time 26.6 sec (24.3-30.1); INR 1.1 Ratio; Prothrombin Time 11.6 sec (9.8-11.6)
[2018-06-02 20:48] LABS: Albumin 3.2 g/dL (3.4-5.0); Anion Gap 8 meq/L (5-15); Aspartate Aminotransferase 51 U/L (15-37); Blood Urea Nitrogen 16 mg/dL (7-18); Calcium 8.5 mg/dL (8.5-10.1); Carbon Dioxide 27.1 meq/L (21.0-32.0); Chloride 102 meq/L (98-107); Glomerular Filtration Rate 57 mL/min (>89); Glucose,Random 131 mg/dL (74-106); Lipase 345 U/L (73-393); Magnesium 1.8 mg/dL (1.5-2.5); Potassium 4.1 meq/L (3.5-5.1); Sodium 137 meq/L (136-145)
[2018-06-02 20:50] LABS: Alanine Aminotransferase 24 U/L (12-78)
[2018-06-02 20:52] LABS: Alkaline Phosphatase 77 U/L (45-117); Total Protein 6.7 g/dL (6.4-8.2)
[2018-06-02] MEDS ORDERED: Piperacil/Tazo 4.5 GM Premix 4.5 GM/100 ML BAG IV.SIG ONE (20:54)
--- NOTE | 2018-06-02 21:33 | CT ---
EXAM DATE: 06/02/2018 8:58 PM EDT AGE/SEX: 77 years / Male INDICATIONS: Lower abdominal pain and dysuria. CLINICAL DATA: This is the patient's initial encounter. Patient reports that signs and symptoms have been present for 1 day and indicates a pain score of 9/10. MEDICAL/SURGICAL HISTORY: Chronic obstructive pulmonary disease. Deep venous thrombosis. [place] static disease. Esophageal cancer. None. ORAL CONTRAST: No oral contrast ingested. RADIATION DOSE: 18.42 CTDI (mGy) COMPARISON: [facility], CT ABDOMEN AND PELVIS W/O CONTRAST, 04/05/2018. . TECHNIQUE: Multiple contiguous axial images were obtained through the abdomen and pelvis following b olus infusion of 100 ml Omnipaque 350 (iohexol) nonionic water-soluble contrast as a single exam do se. No oral contrast ingested. Using automated exposure control and adjustment of the mA and/or kV a ccording to patient size, radiation dose was kept as low as reasonably achievable to obtain optimal d iagnostic quality images. DICOM format image data is available electronically for review and compari son. FINDINGS: Comparison is March 2017. There is abnormal mural thickening of the distal esophagus adenopathy at t he celiac access measuring up to 1.7 cm in diameter. Numerous hepatic metastases again identified whi ch may have increased slightly in size since April 05. Spleen, adrenals and pancreas demonstrate no acute findings. Stable bilateral renal cysts. No calcified gallstones. Examination of the pelvis reveals extensive sigmoid diverticulosis. Bladder is nondistended. Prostate has heterogeneous appearance with a prominent prostatic urethra possibly from TURP. There is an infr arenal abdominal aortic aneurysm measuring up to about 4 cm in diameter. Nodules noted at both lung bases slightly increased in size from prior exam. CONCLUSION: 1. Slight worsening of metastatic disease to the lung bases and liver compared with April 05. Mural thickening of the distal esophagus persists, characteristic of reported esophageal neoplasm. 2. 4 cm infrarenal abdominal aortic aneurysm. 3. Mildly enlarged heterogeneous prostate. Bladder unremarkable on CT. 4. Severe colonic diverticulosis. 5. 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 Electronically signed by: Chuy Thompson MD 06/02/2018 9:32 PM EDT
[2018-06-02] MEDS ORDERED: Vancomycin Inj 1,000 MG in Sodium Chlor 0.9% Inj 250 ML IV.SIG ONE (21:51)
[2018-06-02] MEDS ORDERED: Sod Chloride 0.9% Inj 1,000 ML IV.SIG SCH (22:00)
[2018-06-02] MEDS ORDERED: Acetaminophen 325 MG Tablet PO PRN (22:52)
[2018-06-02] MEDS: Enoxaparin Inj 30 MG/0.3 ML Syringe SQ SCH (23:53)
[2018-06-03] MEDS: Budesonide-Formoterol 160/4.5 MCG 6 GM Inhaler INH SCH ×2 (00:16→10:52)
[2018-06-03 05:24] LABS: Baso % (Auto) 0.3 % (0.0-2.0); Eos # (Auto) 0.1 th/mm3 (0.0-0.4); Eos % (Auto) 0.7 % (0.0-4.0); Hematocrit 28.7 % (39.0-51.0); Hemoglobin 9.4 gm/dL (13.0-17.0); Lymph % (Auto) 8.6 % (9.0-44.0); Mean Corpuscular HGB Conc 32.7 % (32.0-36.0); Mean Corpuscular Hemoglobin 27.9 pg (27.0-34.0); Mean Corpuscular Volume 85.3 fL (80.0-100.0); Mean Platelet Volume 7.7 fL (7.0-11.0); Mono # (Auto) 0.9 th/mm3 (0.0-0.9); Mono % (Auto) 8.3 % (0.0-8.0); Neut # (Auto) 9.4 th/mm3 (1.8-7.7); Neut % (Auto) 82.1 % (16.0-70.0); Platelet Count 154 th/mm3 (150-450); Red Blood Count 3.36 mil/mm3 (4.50-5.90); Red Cell Distribution Width 14.7 % (11.6-17.2); White Blood Count 11.4 th/mm3 (4.0-11.0)
[2018-06-03 05:47] LABS: Calcium 7.9 mg/dL (8.5-10.1); Carbon Dioxide 26.5 meq/L (21.0-32.0); Potassium 3.9 meq/L (3.5-5.1)
[2018-06-03] MEDS: Senna/Docusate Sodium 8.6/50 MG Tablet PO SCH ×2 (09:02→22:14)
[2018-06-03] MEDS: Lisinopril 20 MG Tablet PO SCH (09:02)
--- NOTE | 2018-06-03 09:25 | P.HP ---
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 Patient was placed on Eliquis which was on hold Thursday for upcoming port placement which was planned for 06/04/2018. Patient has not yet started treatment for his esophageal carcinoma. Patient presented to the emergency department last night for evaluation of lower abdominal pain with nausea and dry heaving and one episode of diarrhea. Patient also endorses subjective fevers without chills and increase in urinary frequency/urgency.Patient rates his current discomfort 5/10 in intensity. Patient reports poor oral intake today and reports that he feels dehydrated. Patient denies hematemesis, coffee-ground emesis, melena, hematochezia, dysuria , flank pain, hematuria, cough, congestion, sore throat or chest pain. Patient did eat sausage and cabbage yesterday and is concerned that there may be a correlation however grandson and ate the same food without any symptoms. 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 This includes certification that hospital inpatient services are reasonable and necessary and in the case of services not specified as inpatient-only under 42 CFR 419.22(n), that they are appropriately provided as inpatient services in accordance to with the 2-midnight benchmark under 43 CFR 412.3(e) Estimated Total Length of Stay (Days): 3 Plans for Post Hospital Care: Not yet determined Review of Systems All other systems reviewed negative except as stated in HPI [facility] - History History Provided By: Patient - Medical History Medical History: Medical History (Last Reviewed 06/03/18 @ 08:17 by Ahmet Omer) COPD (chronic obstructive pulmonary disease) FHx: total knee replacement - Tobacco History Second Hand Smoke Exposure: No Tobacco Use In Past 30 Days: No Smoking Status: Former smoker Tobacco Type: Cigarettes - Alcohol History How Often Do You Have a Drink Containing Alcohol: Never - Substance Use History Substance History: No History of Abuse - Travel History Recent Travel in the [place] Within the Last 8 Weeks: No Recent Travel Out of the Country Within the Last 8 Weeks: No - Immunization History Tetanus Immunization: >5 Years Hx Influenza Vaccine This Season: No Medications and Allergies Allergies Allergy/AdvReac Type Severity Reaction Status Date / Time No Known Allergies Allergy Verified 04/22/18 09:14 Home Medications Medication Instructions Recorded Confirmed Type budesonide-formoterol [Symbicort] 2 puff INHALATION BID 04/22/18 06/02/18 History lisinopril 20 mg PO DAILY 04/22/18 06/02/18 History apixaban [Eliquis] 5 mg PO BID 06/03/18 06/03/18 History Active Medications: Active Medications Acetaminophen (Tylenol) 650 mg PO Q4H PRN PRN Reason: Temp > 100.4 Al Hydroxide/Mg Hydroxide (Milk Of Melanie Liq) 30 ml PO Q12H PRN PRN Reason: Mild Constipation Albuterol (Duoneb Neb (Prn)) 1 ampul NEB Q6HR NEB PRN PRN Reason: SHORTNESS OF BREATH/WHEEZING Budesonide/Formoterol Fumarate (Symbicort 160/4.5 Mcg Inh) 2 puff INH BID [facility] Last Admin: 06/03/18 00:16 Dose: Not Given Clonidine HCl (Catapres) 0.2 mg PO Q6H PRN PRN Reason: SBP>160, DBP>90 Enoxaparin Sodium (Lovenox Inj) 30 mg SQ Q24H [facility] Last Admin: 06/02/18 23:53 Dose: Not Given Sodium Chloride (Ns Inj) 1,000 mls @ 0 mls/hr IV.SIG BOLUS EVELINE Last Infusion: 06/02/18 23:53 Dose: Infused Ceftriaxone Sodium 1,000 mg/ (Sodium Chloride) 100 mls @ 200 mls/hr IV.SIG Q24H [facility] Lisinopril (Prinivil) 20 mg PO DAILY [facility] Ondansetron HCl (Zofran Inj) 4 mg IV.PUSH Q6H PRN PRN Reason: NAUSEA OR VOMITING Senna/Docusate Sodium (Dipti-Colace) 1 tab PO BID [facility] Sodium Chloride (Ns Flush) 2 ml IV.FLUSH PRN PRN PRN Reason: FLUSH AFTER USING IV ACCESS Last Admin: 06/02/18 20:35 Dose: 2 ml Exam Vital signs: Vital Signs 06/02/18 19:33 06/02/18 20:20 06/02/18 20:28 Temperature 100.3 F H 98.8 F Pulse Rate 127 H 95 H Respiratory Rate 22 18 Blood Pressure 154/67 H 157/70 H Pulse Oximetry 95 95 96 06/02/18 23:55 06/03/18 00:25 06/03/18 04:09 Temperature 99.1 F 99.9 F H Pulse Rate 104 H 104 H Respiratory Rate 16 19 20 Blood Pressure 145/58 H 114/56 L Pulse Oximetry 96 95 06/03/18 07:53 Temperature 99.8 F H Pulse Rate 108 H Respiratory Rate 16 Blood Pressure 122/68 Pulse Oximetry 96 Intake & Output 06/02/18 06/03/18 06/03/18 18:59 06:59 18:59 Intake Total 2500 / 2500 Balance 2500 / 2500 Weight 93 kg Intake: IV 2350 / 2350 Zosyn 4.5 GM Premix 4.5 gm In 100 / 100 100 ml @ 200 mls/hr IV.SIG ONCE ONE Rx#:[id number] NS Inj 1,000 ML @ Wide Open IV. 1999 / 1999 SIG BOLUS EVELINE Rx#:[id number] Vancomycin Inj 1,000 MG In NS 250 / 250 Inj 250 ML @ 250 mls/hr IV.SIG ONCE ONE Rx#:[id number] Oral 150 / 150 Other: # Voids 2 Weight On Admission 93.5 kg Narrative: GENERAL: This is a well-nourished, well-developed patient, in no apparent distress. CARDIOVASCULAR: Regular rate and rhythm without murmurs, gallops, or rubs. RESPIRATORY: Clear to auscultation. Breath sounds equal bilaterally. No wheezes , rales, or rhonchi. GASTROINTESTINAL: Abdomen soft, mild suprapubic and left lower quadrant tenderness without guarding or rebound and no palpable pulsatile mass, nondistended. Normal active bowel sounds MUSCULOSKELETAL: Extremities without clubbing, cyanosis, or edema. NEURO: Alert & Oriented x4 to person, place, time, situation. Moves all ext x4 Results - Labs CBC & Chem 7: 06/03/18 04:41 06/03/18 04:41 Labs: Laboratory Results - last 24 hr 06/02/18 06/02/18 06/02/18 20:00 20:10 20:10 WBC 13.8 H RBC 3.94 L Hgb 11.1 L Hct 33.4 L MCV 84.8 MCH 28.1 MCHC 33.1 RDW 14.7 Plt Count 194 MPV 7.7 Neut % (Auto) 84.3 H Lymph % (Auto) 7.4 L [place] % (Auto) 7.8 Eos % (Auto) 0.3 Baso % (Auto) 0.2 Neut # (Auto) 11.6 H Lymph # (Auto) 1.0 [place] # (Auto) 1.1 H Eos # (Auto) 0.0 Baso # (Auto) 0.0 WBC Differential . Differential Comment Auto diff final PT 11.6 INR 1.1 APTT 26.6 Sodium Potassium Chloride Carbon Dioxide Anion Gap BUN Creatinine Estimated GFR Random Glucose Lactic Acid 1.7 Calcium Magnesium Total Bilirubin AST ALT Alkaline Phosphatase Total Protein Albumin Lipase Urine Color Urine Clarity Urine pH Ur Specific Rule Urine Protein Urine Glucose (UA) Urine Ketones Urine Occult Blood Urine Nitrate Urine Bilirubin Urine Urobilinogen Ur Leukocyte Esterase Urine RBC Urine WBC Urine Bacteria Hyaline Casts Urine Mucus Micro UA Comment Ur Microscopic Review Urine Culture Comments 06/02/18 06/02/18 06/03/18 20:10 20:10 04:41 WBC 11.4 H RBC 3.36 L Hgb 9.4 L Hct 28.7 L MCV 85.3 MCH 27.9 MCHC 32.7 RDW 14.7 Plt Count 154 MPV 7.7 Neut % (Auto) 82.1 H Lymph % (Auto) 8.6 L [place] % (Auto) 8.3 H Eos % (Auto) 0.7 Baso % (Auto) 0.3 Neut # (Auto) 9.4 H Lymph # (Auto) 1.0 [place] # (Auto) 0.9 Eos # (Auto) 0.1 Baso # (Auto) 0.0 WBC Differential . Differential Comment Auto diff final PT INR APTT Sodium 137 Potassium 4.1 Chloride 102 Carbon Dioxide 27.1 Anion Gap 8 BUN 16 Creatinine 1.23 Estimated GFR 57 L Random Glucose 131 H Lactic Acid Calcium 8.5 Magnesium 1.8 Total Bilirubin 0.8 AST 51 H ALT 24 Alkaline Phosphatase 77 Total Protein 6.7 Albumin 3.2 L Lipase 345 Urine Color Yellow Urine Clarity Hazy H Urine pH 5.0 Ur Specific Rule 1.024 Urine Protein 100 H Urine Glucose (UA) Negative Urine Ketones 20 Urine Occult Blood Moderate H Urine Nitrate Negative Urine Bilirubin Negative Urine Urobilinogen Less than 2 Ur Leukocyte Esterase Moderate H Urine RBC 7 H Urine WBC Urine Bacteria Few H Hyaline Casts 1 Urine Mucus Few H Micro UA Comment Culture indicated Ur Microscopic Review Not Reportable Urine Culture Comments Culture indicated 06/03/18 04:41 WBC RBC Hgb Hct MCV MCH MCHC RDW Plt Count MPV Neut % (Auto) Lymph % (Auto) [place] % (Auto) Eos % (Auto) Baso % (Auto) Neut # (Auto) Lymph # (Auto) [place] # (Auto) Eos # (Auto) Baso # (Auto) WBC Differential Differential Comment PT INR APTT Sodium 141 Potassium 3.9 Chloride 106 Carbon Dioxide 26.5 Anion Gap 9 BUN 13 Creatinine 0.96 Estimated GFR 76 L Random Glucose 94 Lactic Acid Calcium 7.9 L Magnesium Total Bilirubin AST ALT Alkaline Phosphatase Total Protein Albumin Lipase Urine Color Urine Clarity Urine pH Ur Specific Rule Urine Protein Urine Glucose (UA) Urine Ketones Urine Occult Blood Urine Nitrate Urine Bilirubin Urine Urobilinogen Ur Leukocyte Esterase Urine RBC Urine WBC Urine Bacteria Hyaline Casts Urine Mucus Micro UA Comment Ur Microscopic Review Urine Culture Comments - Imaging Impressions Abdomen/Pelvis CT 06/02/18 19:59 CONCLUSION: 1. Slight worsening of metastatic disease to the lung bases and liver compared with April 05. Mural thickening of the distal esophagus persists, characteristic of reported esophageal neoplasm. 2. 4 cm infrarenal abdominal aortic aneurysm. 3. Mildly enlarged heterogeneous prostate. Bladder unremarkable on CT. 4. Severe colonic diverticulosis. 5. 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 Chest X-Ray 06/02/18 19:59 CONCLUSION: No acute findings. Caprini VTE Risk Assessment Caprini VTE Risk Assessment: Moderate/High Risk (score >= 2) Caprini Risk Assessment Model: Point Value = 1 Point Value = 2 Point Value = 3 Point Value = 5 Age 41-60 Minor surgery BMI > 25 kg/m2 Swollen legs Varicose veins or History of unexplained or recurrent spontaneous Oral contraceptives or hormone replacement Sepsis (< 1 month) Serious lung disease, including pneumonia (< 1 month) Abnormal pulmonary function Acute myocardial infarction Congestive heart failure (< 1 month) History of inflammatory bowel disease Medical patient at bed rest Age 61-74 Arthroscopic surgery Major open surgery (> 45 min) Laparoscopic surgery (> 45 min) Malignancy Confined to bed (> 72 hours) Immobilizing plaster cast Central venous access Age >= 75 History of VTE Family history of VTE Factor V Leiden Prothrombin [id number] Lupus anticoagulant Anticardiolipin antibodies Elevated serum homocysteine Heparin-induced thrombocytopenia Other congenital or acquired thrombophilia Stroke (< 1 month) Elective arthroplasty Hip, pelvis, or leg fracture Acute spinal cord injury (< 1 month) Prophylaxis Regimen: Total Risk Factor Score Risk Level Prophylaxis Regimen 0-1 Low Early ambulation 2 Moderate Order ONE of the following: *Sequential Compression Device (SCD) *Heparin 5000 units SQ BID 3-4 Higher Order ONE of the following medications: *Heparin 5000 units SQ TID *Enoxaparin/Lovenox 40 mg SQ daily (WT < 150 kg, CrCl > 30 mL/min) *Enoxaparin/Lovenox 30 mg SQ daily (WT < 150 kg, CrCl > 10-29 mL/min) *Enoxaparin/Lovenox 30 mg SQ BID (WT < 150 kg, CrCl > 30 mL/min) AND/OR *Sequential Compression Device (SCD) 5 or more Highest Order ONE of the following medications: *Heparin 5000 units SQ TID (Preferred with Epidurals) *Enoxaparin/Lovenox 40 mg SQ daily (WT < 150 kg, CrCl > 30 mL/min) *Enoxaparin/Lovenox 30 mg SQ daily (WT < 150 kg, CrCl > 10-29 mL/min) *Enoxaparin/Lovenox 30 mg SQ BID (WT < 150 kg, CrCl > 30 mL/min) AND *Sequential Compression Device (SCD) Assessment and Plan - Assessment (1) UTI (urinary tract infection) with pyuria Code(s): N39.0 - Urinary tract infection, site not specified Status: Acute Plan: This a 77-year-old male patient with a past medical history which includes AAA, arthritis, cataracts, COPD, hypertension, lumbar degenerative disc disease, obstructive sleep apnea, diverticulosis 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 Patient was placed on Eliquis which was on hold Thursday for upcoming port placement which was planned for 06/04/2018. Patient has not yet started treatment for his esophageal carcinoma. Patient presented to the emergency department last night for evaluation of lower abdominal pain with nausea and dry heaving and one episode of diarrhea. Patient also endorses subjective fevers without chills and increase in urinary frequency/urgency.Patient rates his current discomfort 5/10 in intensity. Patient reports poor oral intake today and reports that he feels dehydrated. Patient denies hematemesis, coffee-ground emesis, melena, hematochezia, dysuria , flank pain, hematuria, cough, congestion, sore throat or chest pain. Patient did eat sausage and cabbage yesterday and is concerned that there may be a correlation however grandson and ate the same food without any symptoms. UTI Urinalysis reviewed and reveals moderate occult blood, negative nitrates, moderate leukocyte esterase with a bowl white blood cells and few bacteria urine culture reveals: gram negative rods sensitivity pending White blood cell count on admission 13.8 neutrophil percent 84.3 Temperature on admission 100.3 Patient given vancomycin and Zosyn in emergency department x1 Patient started on Rocephin every 24 hours Adenocarcinoma of the esophagus with metastatic disease to liver and lungs March [address] Ferraro on outpatient basis Patient had planned port placement this 06/04/2018 DVT to the right right femoral, popliteal and posterior tibial veins 05/16/2018 HTN Continue patient's home lisinopril 20 mg p.o. daily COPD Does not appear to be in acute exacerbation Continue home Symbicort Duo nebs as needed Obstructive sleep apnea Patient may use home CPAP machine AAA Continue outpatient follow-up <Antonio French - Last Filed: 06/06/18 08:05> History of Present Illness Primary Care Physician: Joe Ramirez MD - Diagnosis (1) UTI (urinary tract infection) with pyuria Inpatient Certification: I certify that the inpatient services were ordered in accordance with Medicare regulations governing the order. This includes certification that hospital inpatient services are reasonable and necessary and in the case of services not specified as inpatient-only under 42 CFR 419.22(n), that they are appropriately provided as inpatient services in accordance to with the 2-midnight benchmark under 43 CFR 412.3(e) [facility] - Medical History Medical History: Medical History (Last Reviewed 06/03/18 @ 08:17 by Ahmet Omer) COPD (chronic obstructive pulmonary disease) FHx: total knee replacement Exam Vital signs: Vital Signs 06/05/18 11:30 Temperature 98.0 F Pulse Rate 82 Respiratory Rate 16 Blood Pressure 135/65 Intake & Output 06/05/18 06/06/18 06/06/18 18:59 06:59 18:59 Intake Total 340 / 340 Output Total 850 / 850 Balance -510 / -510 Intake: IV 100 / 100 Rocephin Inj 1,000 MG In NS Inj 100 / 100 100 ML @ 200 mls/hr IV.SIG Q24H [facility]EL[facility] Rx#:[id number] Oral 240 / 240 Output: Urine 850 / 850 Other: # Voids 3 Date of Last Bowel Movement 06/02/18 Results - Labs CBC & Chem 7: 06/04/18 06:33 06/04/18 06:33 Caprini VTE Risk Assessment Caprini Risk Assessment Model: Point Value = 1 Point Value = 2 Point Value = 3 Point Value = 5 Age 41-60 Minor surgery BMI > 25 kg/m2 Swollen legs Varicose veins or History of unexplained or recurrent spontaneous Oral contraceptives or hormone replacement Sepsis (< 1 month) Serious lung disease, including pneumonia (< 1 month) Abnormal pulmonary function Acute myocardial infarction Congestive heart failure (< 1 month) History of inflammatory bowel disease Medical patient at bed rest Age 61-74 Arthroscopic surgery Major open surgery (> 45 min) Laparoscopic surgery (> 45 min) Malignancy Confined to bed (> 72 hours) Immobilizing plaster cast Central venous access Age >= 75 History of VTE Family history of VTE Factor V Leiden Prothrombin [id number] Lupus anticoagulant Anticardiolipin antibodies Elevated serum homocysteine Heparin-induced thrombocytopenia Other congenital or acquired thrombophilia Stroke (< 1 month) Elective arthroplasty Hip, pelvis, or leg fracture Acute spinal cord injury (< 1 month) Prophylaxis Regimen: Total Risk Factor Score Risk Level Prophylaxis Regimen 0-1 Low Early ambulation 2 Moderate Order ONE of the following: *Sequential Compression Device (SCD) *Heparin 5000 units SQ BID 3-4 Higher Order ONE of the following medications: *Heparin 5000 units SQ TID *Enoxaparin/Lovenox 40 mg SQ daily (WT < 150 kg, CrCl > 30 mL/min) *Enoxaparin/Lovenox 30 mg SQ daily (WT < 150 kg, CrCl > 10-29 mL/min) *Enoxaparin/Lovenox 30 mg SQ BID (WT < 150 kg, CrCl > 30 mL/min) AND/OR *Sequential Compression Device (SCD) 5 or more Highest Order ONE of the following medications: *Heparin 5000 units SQ TID (Preferred with Epidurals) *Enoxaparin/Lovenox 40 mg SQ daily (WT < 150 kg, CrCl > 30 mL/min) *Enoxaparin/Lovenox 30 mg SQ daily (WT < 150 kg, CrCl > 10-29 mL/min) *Enoxaparin/Lovenox 30 mg SQ BID (WT < 150 kg, CrCl > 30 mL/min) AND *Sequential Compression Device (SCD) Assessment and Plan - Assessment (1) UTI (urinary tract infection) with pyuria Code(s): N39.0 - Urinary tract infection, site not specified Status: Acute - Attending Attestation The exam, history, and the medical decision-making described in the above note were completed with the assistance of the mid-level provider. I reviewed and agree with the findings presented. I attest that I had a [id number] encounter with the patient on the same day, and personally performed and documented my assessment and findings in the medical record. Patient examined. Assessment and plan formulated with Malaika Abdalla PA-C. I agree with the above.
--- NOTE | 2018-06-03 14:55 | ECG ---
Date Performed: 06/02/2018 Time Performed: 20:06:38 PTAGE: 77 years EKG: SINUS TACHYCARDIA SEPTAL MYOCARDIAL INFARCTION ABNORMAL ECG PREVIOUS TRACING 10/05/2017 @ 08.12 Since the previous tracing, no significant change noted DOCTOR: Joe Gudino Interpretating Date/Time 06/03/2018 14:54:48
[2018-06-03] MEDS: Enoxaparin Inj 30 MG/0.3 ML Syringe SQ SCH (22:14)
[2018-06-04] MEDS: Budesonide-Formoterol 160/4.5 MCG 6 GM Inhaler INH SCH ×3 (04:02→22:22)
[2018-06-04 08:13] LABS: Baso % (Auto) 0.5 % (0.0-2.0); Eos # (Auto) 0.3 th/mm3 (0.0-0.4); Hematocrit 28.5 % (39.0-51.0); Hemoglobin 9.5 gm/dL (13.0-17.0); Lymph # (Auto) 1.2 th/mm3 (1.0-4.8); Lymph % (Auto) 13.8 % (9.0-44.0); Mean Corpuscular HGB Conc 33.3 % (32.0-36.0); Mean Corpuscular Hemoglobin 28.5 pg (27.0-34.0); Mean Corpuscular Volume 85.6 fL (80.0-100.0); Mono # (Auto) 0.8 th/mm3 (0.0-0.9); Mono % (Auto) 9.7 % (0.0-8.0); Neut # (Auto) 6.3 th/mm3 (1.8-7.7); Platelet Count 152 th/mm3 (150-450); Red Blood Count 3.33 mil/mm3 (4.50-5.90); Red Cell Distribution Width 14.6 % (11.6-17.2); White Blood Count 8.6 th/mm3 (4.0-11.0)
[2018-06-04 08:31] LABS: Calcium 8.3 mg/dL (8.5-10.1); Carbon Dioxide 28.7 meq/L (21.0-32.0); Potassium 3.9 meq/L (3.5-5.1)
[2018-06-04] MEDS: Senna/Docusate Sodium 8.6/50 MG Tablet PO SCH ×2 (10:07→22:22)
[2018-06-04] MEDS: Lisinopril 20 MG Tablet PO SCH (10:07)
--- NOTE | 2018-06-04 11:07 | P.PNIM ---
Subjective Interval history: Follow up: UTI with esophageal cancer Patient reports feeling better today WBC 8.6 Physical Exam Vital signs: Vital Signs 06/03/18 12:00 06/03/18 12:51 06/03/18 16:25 Temperature 98.6 F 98.5 F Pulse Rate 104 H 102 H 101 H Respiratory Rate 20 16 Blood Pressure 109/56 L 111/62 Pulse Oximetry 97 100 06/03/18 16:28 06/03/18 20:00 06/04/18 00:00 Temperature 98.4 F Pulse Rate 94 H 103 H 99 H Respiratory Rate 16 16 Blood Pressure 110/69 Pulse Oximetry 95 06/04/18 04:00 06/04/18 08:00 Temperature 99.4 F Pulse Rate 101 H 110 H Respiratory Rate 16 12 Blood Pressure 120/60 Pulse Oximetry 98 Intake & Output 06/03/18 06/04/18 06/04/18 18:59 06:59 18:59 Intake Total 880 / 880 240 / 240 Balance 880 / 880 240 / 240 Weight 92.8 kg Intake: IV 100 / 100 Rocephin Inj 1,000 MG In NS Inj 100 / 100 100 ML @ 200 mls/hr IV.SIG Q24H [facility] Rx#:[id number] Oral 780 / 780 240 / 240 Other: # Voids 6 2 Narrative: GENERAL: This is a well-nourished, well-developed patient, in no apparent distress. CARDIOVASCULAR: Regular rate and rhythm RESPIRATORY: Clear to auscultation. Breath sounds equal bilaterally. GASTROINTESTINAL: Abdomen soft, mild suprapubic tenderness, nondistended. Normal active bowel sounds MUSCULOSKELETAL: Extremities without clubbing, cyanosis, or edema. NEURO: Alert & Oriented x4 to person, place, time, situation. Moves all ext x4 Results - Labs CBC & Chem 7: 06/04/18 06:33 06/04/18 06:33 Laboratory Results - last 24 hr 06/02/18 06/04/18 06/04/18 20:10 06:33 06:33 WBC 8.6 RBC 3.33 L Hgb 9.5 L Hct 28.5 L MCV 85.6 MCH 28.5 MCHC 33.3 RDW 14.6 Plt Count 152 MPV 8.0 Neut % (Auto) 73.0 H Lymph % (Auto) 13.8 Pepin % (Auto) 9.7 H Eos % (Auto) 3.0 Baso % (Auto) 0.5 Neut # (Auto) 6.3 Lymph # (Auto) 1.2 Pepin # (Auto) 0.8 Eos # (Auto) 0.3 Baso # (Auto) 0.0 WBC Differential . Differential Comment Auto diff final Sodium 141 Potassium 3.9 Chloride 105 Carbon Dioxide 28.7 Anion Gap 7 BUN 12 Creatinine 0.91 Estimated GFR 80 L Random Glucose 82 Calcium 8.3 L Urine Color Yellow Urine Clarity Hazy H Urine pH 5.0 Ur Specific [place] 1.024 Urine Protein 100 H Urine Glucose (UA) Negative Urine Ketones 20 Urine Occult Blood Moderate H Urine Nitrate Negative Urine Bilirubin Negative Urine Urobilinogen Less than 2 Ur Leukocyte Esterase Moderate H Urine RBC 7 H Urine WBC Urine Bacteria Few H Hyaline Casts 1 Urine Mucus Few H Micro UA Comment Culture indicated Urine Culture Comments Culture indicated Microbiology 06/02/18 20:10 Clean Catch Urine Urine Culture - Preliminary gram negative rods 06/02/18 20:00 Blood - Peripheral Aerobic Blood Culture - Preliminary No growth in 1 day 06/02/18 20:00 Blood - Peripheral Anaerobic Blood Culture - Preliminary No growth in 1 day 06/02/18 20:10 Blood - Peripheral Aerobic Blood Culture - Preliminary No growth in 1 day 06/02/18 20:10 Blood - Peripheral Anaerobic Blood Culture - Preliminary No growth in 1 day Assessment and Plan - Assessment (1) UTI (urinary tract infection) with pyuria Code(s): N39.0 - Urinary tract infection, site not specified Status: Acute Plan: This a 77-year-old male patient with a past medical history which includes AAA, arthritis, cataracts, COPD, hypertension, lumbar degenerative disc disease, obstructive sleep apnea, diverticulosis 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 Patient was placed on Eliquis which was on hold Thursday for upcoming port placement which was planned for 06/04/2018. Patient has not yet started treatment for his esophageal carcinoma. Patient presented to the emergency department last night for evaluation of lower abdominal pain with nausea and dry heaving and one episode of diarrhea. Patient also endorses subjective fevers without chills and increase in urinary frequency/urgency.Patient rates his current discomfort 5/10 in intensity. Patient reports poor oral intake today and reports that he feels dehydrated. Patient denies hematemesis, coffee-ground emesis, melena, hematochezia, dysuria , flank pain, hematuria, cough, congestion, sore throat or chest pain. Patient did eat sausage and cabbage yesterday and is concerned that there may be a correlation however grandson and ate the same food without any symptoms. UTI Urinalysis reviewed and reveals moderate occult blood, negative nitrates, moderate leukocyte esterase with a bowl white blood cells and few bacteria urine culture reveals: gram negative rods sensitivity pending White blood cell count on admission 13.8 neutrophil percent 84.3 Temperature on admission 100.3 Patient given vancomycin and Zosyn in emergency department x1 Continue Rocephin every 24 hours urine sensitivity pending, will adjust abx once sensitivity resulted 06/04 WBC 8.6 Adenocarcinoma of the esophagus with metastatic disease to liver and lungs March [address] Ferraro on outpatient basis Patient had planned port placement this 06/04/2018 CXL reschedule PORT placement for Friday 06/08 DVT to the right right femoral, popliteal and posterior tibial veins 05/16/2018 Resume Eliquis 5 mg PO BID patient to hold Eliquis 48 hours prior to PORT placement HTN Continue patient's home lisinopril 20 mg p.o. daily COPD Does not appear to be in acute exacerbation Continue home Symbicort Duo nebs as needed Obstructive sleep apnea Patient may use home CPAP machine AAA Continue outpatient follow-up - Attending Attestation The exam, history, and the medical decision-making described in the above note were completed with the assistance of the mid-level provider. I reviewed and agree with the findings presented. I attest that I had a [id number] encounter with the patient on the same day, and personally performed and documented my assessment and findings in the medical record. Patient examined. Assessment and plan formulated with Malaika Abdalla PA-C. I agree with the above.
[2018-06-05 04:01] VITALS: RESP 16
[2018-06-05] MEDS: Lisinopril 20 MG Tablet PO SCH (09:48)
[2018-06-05] MEDS: Senna/Docusate Sodium 8.6/50 MG Tablet PO SCH (09:48)
[2018-06-05] MEDS: Budesonide-Formoterol 160/4.5 MCG 6 GM Inhaler INH SCH (09:48)
--- NOTE | 2018-06-05 11:01 | P.DS ---
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 Patient was placed on Eliquis which was on hold Thursday for upcoming port placement which was planned for 06/04/2018. Patient has not yet started treatment for his esophageal carcinoma. Patient presented to the emergency department last night for evaluation of lower abdominal pain with nausea and dry heaving and one episode of diarrhea. Patient also endorses subjective fevers without chills and increase in urinary frequency/urgency.Patient rates his current discomfort 5/10 in intensity. Patient reports poor oral intake today and reports that he feels dehydrated. Patient denies hematemesis, coffee-ground emesis, melena, hematochezia, dysuria , flank pain, hematuria, cough, congestion, sore throat or chest pain. Patient did eat sausage and cabbage yesterday and is concerned that there may be a correlation however grandson and ate the same food without any symptoms. 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 Social history: , retired Rare EtOH use Former smoker Patient update on day of discharge: Patient reports feeling well Offers no complaints at this time looking forward to going home DS: Diagnosis - Discharge Diagnosis (1) UTI (urinary tract infection) with pyuria Status: Acute DS: Medications - Discharge Medications Prescriptions: levofloxacin [Levaquin] 500 mg PO DAILY 3 Days #3 tab DS: Summary Hospital Course: This a 77-year-old male patient with a past medical history which includes AAA, arthritis, cataracts, COPD, hypertension, lumbar degenerative disc disease, obstructive sleep apnea, diverticulosis 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 Patient was placed on Eliquis which was on hold Thursday for upcoming port placement which was planned for 06/04/2018. Patient has not yet started treatment for his esophageal carcinoma. Patient presented to the emergency department last night for evaluation of lower abdominal pain with nausea and dry heaving and one episode of diarrhea. Patient also endorses subjective fevers without chills and increase in urinary frequency/urgency.Patient rates his current discomfort 5/10 in intensity. Patient reports poor oral intake today and reports that he feels dehydrated. Patient denies hematemesis, coffee-ground emesis, melena, hematochezia, dysuria , flank pain, hematuria, cough, congestion, sore throat or chest pain. Patient did eat sausage and cabbage yesterday and is concerned that there may be a correlation however grandson and ate the same food without any symptoms. UTI Urinalysis reviewed and reveals moderate occult blood, negative nitrates, moderate leukocyte esterase with a bowl white blood cells and few bacteria urine culture reveals: gram negative rods sensitivity pending White blood cell count on admission 13.8 neutrophil percent 84.3 Temperature on admission 100.3 Patient given vancomycin and Zosyn in emergency department x1 Continue Rocephin every 24 hours urine sensitivity pending, will adjust abx once sensitivity resulted 06/04 WBC 8.6 Adenocarcinoma of the esophagus with metastatic disease to liver and lungs March [address] Ferraro on outpatient basis Patient had planned port placement this 06/04/2018 CXL reschedule PORT placement for Friday 06/08 DVT to the right right femoral, popliteal and posterior tibial veins 05/16/2018 Resume Eliquis 5 mg PO BID patient to hold Eliquis 48 hours prior to PORT placement HTN Continue patient's home lisinopril 20 mg p.o. daily COPD Does not appear to be in acute exacerbation Continue home Symbicort Duo nebs as needed Obstructive sleep apnea Patient may use home CPAP machine AAA Continue outpatient follow-up - Time Spent with Patient Total time spent providing and/or coordinating discharge services: Greater than 30 minutes - Quality: VTE Deep Vein Thrombosis/Pulmonary Embolism Present on Admission: Yes Exam Vital signs: Vital Signs 06/04/18 12:00 06/04/18 16:00 06/04/18 20:00 Temperature 97.3 F L 98.1 F Pulse Rate 98 H 91 H 98 H Respiratory Rate 16 16 20 Blood Pressure 131/75 111/62 136/69 Pulse Oximetry 96 96 98 06/05/18 00:00 06/05/18 04:00 Temperature Pulse Rate 92 H 96 H Respiratory Rate 16 16 Blood Pressure Pulse Oximetry 96 Intake & Output 06/04/18 06/05/18 06/05/18 18:59 06:59 18:59 Intake Total 100 / 100 240 / 240 Output Total 550 / 550 Balance 100 / 100 -310 / -310 Weight 93 kg Intake: IV 100 / 100 Rocephin Inj 1,000 MG In NS Inj 100 / 100 100 ML @ 200 mls/hr IV.SIG Q24H [facility] Rx#:[id number] Oral 240 / 240 Output: Urine 550 / 550 Narrative: GENERAL: This is a well-nourished, well-developed patient, in no apparent distress. CARDIOVASCULAR: Regular rate and rhythm RESPIRATORY: Clear to auscultation. Breath sounds equal bilaterally. GASTROINTESTINAL: Abdomen soft, mild suprapubic tenderness, nondistended. Normal active bowel sounds MUSCULOSKELETAL: Extremities without clubbing, cyanosis, or edema. NEURO: Alert & Oriented x4 to person, place, time, situation. Moves all ext x4 Results Procedures completed during hospitalization: none Labs on day of discharge: Preliminary micro results at discharge 06/02/18 20:00 Aerobic Blood Culture - Preliminary Blood - Peripheral No growth in 2 days Anaerobic Blood Culture - Preliminary No growth in 2 days 06/02/18 20:10 Aerobic Blood Culture - Preliminary Blood - Peripheral No growth in 2 days Anaerobic Blood Culture - Preliminary No growth in 2 days - Impressions ITS Impressions Abdomen/Pelvis CT 06/02/18 19:59 CONCLUSION: 1. Slight worsening of metastatic disease to the lung bases and liver compared with April 05. Mural thickening of the distal esophagus persists, characteristic of reported esophageal neoplasm. 2. 4 cm infrarenal abdominal aortic aneurysm. 3. Mildly enlarged heterogeneous prostate. Bladder unremarkable on CT. 4. Severe colonic diverticulosis. 5. 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 Chest X-Ray 06/02/18 19:59 CONCLUSION: No acute findings. <Antonio French - Last Filed: 06/06/18 08:07> Date of admission: 06/02/18 22:43 Primary care physician: oJe Ramirez MD DS: Diagnosis - Discharge Diagnosis (1) UTI (urinary tract infection) with pyuria Status: Acute DS: Summary Hospital Course: The exam, history, and the medical decision-making described in the above note were completed with the assistance of the mid-level provider. I reviewed and agree with the findings presented. I attest that I had a [id number] encounter with the patient on the same day, and personally performed and documented my assessment and findings in the medical record. Patient examined. Assessment and plan formulated with Malaika Abdalla PA-C. I agree with the above. - Time Spent with Patient Total time spent providing and/or coordinating discharge services: Greater than 30 minutes Exam Vital signs: Vital Signs 06/05/18 11:30 Temperature 98.0 F Pulse Rate 82 Respiratory Rate 16 Blood Pressure 135/65 Intake & Output 06/05/18 06/06/18 06/06/18 18:59 06:59 18:59 Intake Total 340 / 340 Output Total 850 / 850 Balance -510 / -510 Intake: IV 100 / 100 Rocephin Inj 1,000 MG In NS Inj 100 / 100 100 ML @ 200 mls/hr IV.SIG Q24H [facility] Rx#:[id number] Oral 240 / 240 Output: Urine 850 / 850 Other: # Voids 3 Date of Last Bowel Movement 06/02/18 Results Labs on day of discharge: Preliminary micro results at discharge 06/02/18 20:00 Aerobic Blood Culture - Preliminary Blood - Peripheral No growth in 3 days Anaerobic Blood Culture - Preliminary No growth in 3 days 06/02/18 20:10 Aerobic Blood Culture - Preliminary Blood - Peripheral No growth in 3 days Anaerobic Blood Culture - Preliminary No growth in 3 days - Impressions ITS Impressions Abdomen/Pelvis CT 06/02/18 19:59 CONCLUSION: 1. Slight worsening of metastatic disease to the lung bases and liver compared with April 05. Mural thickening of the distal esophagus persists, characteristic of reported esophageal neoplasm. 2. 4 cm infrarenal abdominal aortic aneurysm. 3. Mildly enlarged heterogeneous prostate. Bladder unremarkable on CT. 4. Severe colonic diverticulosis. 5. 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 Chest X-Ray 06/02/18 19:59 CONCLUSION: No acute findings. Discharge Plan - Discharge Order Discharge Orders: Discharge Order (Routine); Ordered 06/05/18 Ordered By: Malaika Abdalla - Discharge Details Anticipated Discharge Date: 06/05/18 - Physicians Team Primary Care Provider: Joe Ramirez Attending Provider: Antonio French
[2018-06-05 11:16] VITALS: O2SAT 95
[2018-06-05 12:28] VITALS: BP 135/65; PULSE 82; TEMP 98
== END 2018-06-05 16:46 | disposition home or self-care (01) ==
LOC: NEPC 19:21 → NEDA 22:43 → HCIN 23:54
PROVIDERS: ADMIT Hospitalist; ATTEND Hospitalist